=== PATIENT | male | born 1980 | race Two or more races ===

== ENCOUNTER 2016-08-15 17:45 | Inpatient (IN) | payer MEDICARE, MEDICAID ==
[~2016-08-15] VITALS: Ht 170.2 cm; Wt 49.9 kg
[~2016-08-15 17:45] MED LIST: CALC-317 PO; LEVE100012 PO; ZONI100C35 PO
[2016-08-15 18:38] LABS: Basophils # (auto) 0 uL; Basophils % (auto) 0.1 % (0.0-2.0); Eosinophils # (auto) 0.2 uL; Hematocrit 51.6 % (41.0-53.0); Hemoglobin 16.6 g/dL (13.5-17.5); Lymphocytes # (auto) 1.9 uL; Lymphocytes % (auto) 10.1 % (10.0-50.0); Mean Corpuscular Hemoglobin 29.4 pg (28.0-32.0); Mean Corpuscular Hgb Conc. 32.2 g/dL (32.0-36.0); Mean Corpuscular Volume 91.3 fL (80.0-100.0); Mean Platelet Volume 8.7 fL (7.4-10.4); Monocytes # (auto) 0.3 uL; Monocytes % (auto) 1.7 % (0.0-12.0); Neutrophils % (auto) 87.1 % (37.0-80.0); Platelet Count (auto) 238 10^3/uL (140-450); Red Cell Distribution Width 14.8 % (11.6-16.0); SUSPECT VIEW TRANSMISSION; White Blood Cell 18.4 10^3/uL (4.4-10.8)
[2016-08-15] MEDS ORDERED: SODIUM CHLORIDE 0.9% 1,000 ML IV ONE (18:45)
[2016-08-15 18:59] LABS: Albumin 4.3 g/dL (3.4-5.0); BUN/Creatinine Ratio 14.1; Calcium 7.8 mg/dL (8.5-10.1); Potassium 4.1 mmol/L (3.5-5.1)
[2016-08-15 19:02] LABS: Bilirubin, Total 0.5 mg/dL (0.2-1.0); Total Protein 7.8 g/dL (6.4-8.2)
[2016-08-15] MEDS ORDERED: cefTRIAXone 1GM/50ML D5W 50 ML IV ONE (20:30)
[2016-08-16] MEDS ORDERED: HYDROcodone-ACET 5/325MG TAB PO PRN
[2016-08-16] MEDS ORDERED: ACETAMINOPHEN 325 MG TAB PO PRN
[2016-08-16] MEDS ORDERED: NITROGLYCERIN 0.4 MG SL TAB SL PRN
[2016-08-16] MEDS ORDERED: AZITHROMYCIN 500MG/D5W 250ML 250 ML IV ONE
[2016-08-16] MEDS ORDERED: ONDANSETRON HCL 4 MG/2 ML VIAL IV PRN
[2016-08-16] MEDS ORDERED: LORazepam 2MG/ML-1ML VIAL IV PRN
[2016-08-16] MEDS ORDERED: MORPHINE SULF INJ 2 MG/ML SYRINGE 1ML IV PRN
[2016-08-16] MEDS ORDERED: LEVETIRACETAM 500 MG TAB PO ONE
[2016-08-16] MEDS: ZONISAMIDE 100 MG PO SCH ×2 (01:35→22:00)
[2016-08-16 01:45] VITALS: BP 118/56
[2016-08-16 05:00] VITALS: BP 98/57
[2016-08-16 06:06] LABS: Basophils # (auto) 0.1 uL; Basophils % (auto) 0.6 % (0.0-2.0); Eosinophils # (auto) 0 uL; Eosinophils % (auto) 0.1 % (0.0-7.0); Hematocrit 45.3 % (41.0-53.0); Hemoglobin 14.9 g/dL (13.5-17.5); Lymphocytes # (auto) 0.9 uL; Lymphocytes % (auto) 7.1 % (10.0-50.0); Mean Corpuscular Hemoglobin 29.7 pg (28.0-32.0); Mean Corpuscular Hgb Conc. 32.8 g/dL (32.0-36.0); Mean Corpuscular Volume 90.5 fL (80.0-100.0); Mean Platelet Volume 8.8 fL (7.4-10.4); Monocytes # (auto) 0.9 uL; Monocytes % (auto) 7.4 % (0.0-12.0); Neutrophils # (auto) 10.3 uL; Neutrophils % (auto) 84.8 % (37.0-80.0); Platelet Count (auto) 162 10^3/uL (140-450); Red Cell Distribution Width 13.1 % (11.6-16.0); White Blood Cell 12.2 10^3/uL (4.4-10.8)
[2016-08-16 06:31] LABS: Albumin 3.4 g/dL (3.4-5.0); BUN/Creatinine Ratio 15.5; Bilirubin, Total 0.4 mg/dL (0.2-1.0); Calcium 7.9 mg/dL (8.5-10.1); Potassium 3.8 mmol/L (3.5-5.1); Total Protein 6.5 g/dL (6.4-8.2)
[2016-08-16 09:00] VITALS: BP 99/52
[2016-08-16] MEDS: cefTRIAXone 1GM/50ML D5W 50 ML IV SCH (09:24)
[2016-08-16] MEDS: AZITHROMYCIN 500MG/D5W 250ML 250 ML IV SCH (10:54)
[2016-08-16] MEDS: LEVETIRACETAM 500 MG TAB PO SCH ×2 (10:54→21:35)
[2016-08-16] MEDS: FAMOTIDINE 20 MG TAB PO SCH ×2 (10:54→21:35)
[2016-08-16] MEDS ORDERED: DEXTROSE (50%) 50ML SYRG IV PRN (12:15)
[2016-08-16 13:00] VITALS: BP 116/70
[2016-08-16 16:56] VITALS: BP 108/69
[2016-08-16] MEDS: ACCU-CHEK COMFORT CURVE STRIP VI SCH (17:00)
[2016-08-16] MEDS: InsuLIN REG 1unit/0.01ml Soln (100units/ml) SC SCH ×2 (17:00→22:00)
[2016-08-16] MEDS: PRIMIDONE 50 MG TAB PO SCH ×2 (21:35)
[2016-08-16 22:00] VITALS: BP 116/70
[2016-08-17] MEDS: ACCU-CHEK COMFORT CURVE STRIP VI SCH ×2 (02:59→05:50)
[2016-08-17 05:30] VITALS: BP 102/60
[2016-08-17] MEDS: InsuLIN REG 1unit/0.01ml Soln (100units/ml) SC SCH (05:50)
[2016-08-17 06:59] LABS: Basophils # (auto) 0 uL; Basophils % (auto) 0.4 % (0.0-2.0); Eosinophils # (auto) 0.1 uL; Eosinophils % (auto) 1.4 % (0.0-7.0); Hematocrit 46.8 % (41.0-53.0); Hemoglobin 15.4 g/dL (13.5-17.5); Lymphocytes # (auto) 1.3 uL; Lymphocytes % (auto) 18.4 % (10.0-50.0); Mean Corpuscular Hemoglobin 29.6 pg (28.0-32.0); Mean Corpuscular Volume 89.7 fL (80.0-100.0); Mean Platelet Volume 9.6 fL (7.4-10.4); Monocytes % (auto) 14.5 % (0.0-12.0); Neutrophils # (auto) 4.7 uL; Neutrophils % (auto) 65.3 % (37.0-80.0); Platelet Count (auto) 173 10^3/uL (140-450); Red Cell Distribution Width 14.3 % (11.6-16.0); White Blood Cell 7.2 10^3/uL (4.4-10.8)
[2016-08-17 07:06] LABS: Potassium 3.7 mmol/L (3.5-5.1)
[2016-08-17 07:19] LABS: Albumin 3.5 g/dL (3.4-5.0); BUN/Creatinine Ratio 15.7; Bilirubin, Total 0.4 mg/dL (0.2-1.0); Calcium 8.5 mg/dL (8.5-10.1); Total Protein 6.8 g/dL (6.4-8.2)
[2016-08-17 09:00] VITALS: BP 107/59
[2016-08-17] MEDS: cefTRIAXone 1GM/50ML D5W 50 ML IV SCH (09:10)
[2016-08-17] MEDS: LEVETIRACETAM 500 MG TAB PO SCH ×2 (10:01→21:57)
[2016-08-17] MEDS: AZITHROMYCIN 500MG/D5W 250ML 250 ML IV SCH (10:01)
[2016-08-17] MEDS: FAMOTIDINE 20 MG TAB PO SCH ×2 (10:01→21:57)
[2016-08-17 13:00] VITALS: BP 108/64
[2016-08-17 15:00] VITALS: BP 107/67
[2016-08-17] MEDS: ZONISAMIDE 100 MG PO SCH (21:56)
[2016-08-17] MEDS: PRIMIDONE 50 MG TAB PO SCH (21:57)
[2016-08-17 22:00] VITALS: BP 103/61
[2016-08-18 05:30] VITALS: BP 101/68
[2016-08-18 06:21] LABS: Basophils # (auto) 0.1 uL; Basophils % (auto) 0.9 % (0.0-2.0); Eosinophils # (auto) 0.3 uL; Eosinophils % (auto) 4.7 % (0.0-7.0); Hemoglobin 15.7 g/dL (13.5-17.5); Lymphocytes # (auto) 2.2 uL; Lymphocytes % (auto) 40.6 % (10.0-50.0); Mean Corpuscular Hemoglobin 29.7 pg (28.0-32.0); Mean Corpuscular Hgb Conc. 32.7 g/dL (32.0-36.0); Mean Corpuscular Volume 90.6 fL (80.0-100.0); Mean Platelet Volume 9.1 fL (7.4-10.4); Monocytes # (auto) 0.7 uL; Monocytes % (auto) 13.5 % (0.0-12.0); Neutrophils # (auto) 2.2 uL; Neutrophils % (auto) 40.3 % (37.0-80.0); Platelet Count (auto) 180 10^3/uL (140-450); Red Cell Distribution Width 14.2 % (11.6-16.0); White Blood Cell 5.5 10^3/uL (4.4-10.8)
[2016-08-18 06:36] LABS: Potassium 3.8 mmol/L (3.5-5.1)
[2016-08-18 06:47] LABS: Albumin 3.3 g/dL (3.4-5.0); BUN/Creatinine Ratio 19.3; Calcium 7.9 mg/dL (8.5-10.1); Total Protein 6.8 g/dL (6.4-8.2)
[2016-08-18 06:49] LABS: Bilirubin, Total 0.4 mg/dL (0.2-1.0)
[2016-08-18 08:42] VITALS: BP 106/68
[2016-08-18] MEDS: cefTRIAXone 1GM/50ML D5W 50 ML IV SCH (09:01)
[2016-08-18] MEDS: LEVETIRACETAM 500 MG TAB PO SCH (09:27)
[2016-08-18] MEDS: FAMOTIDINE 20 MG TAB PO SCH (09:27)
[2016-08-18] MEDS ORDERED: AZITHROMYCIN 250 MG TAB PO SCH (10:00)
[2016-08-18 11:46] VITALS: BP 107/69
== END 2016-08-18 11:50 | disposition home or self-care (01) | DRG 871 ==
LOC: EDUNIT# 17:45 → ER 17:45 → TELE 17:46 → TELE-WESTW 08-16 01:27 → WEST WING 08-18 06:57
PROVIDERS: ADMIT Internal Medicine; ATTEND Family Medicine
DX: A41.9 Sepsis, unspecified organism (principal); J69.0 Pneumonitis due to inhalation of food and vomit; J98.11 Atelectasis; G40.901 Epilepsy, unspecified, not intractable, with status epilepticus; G80.9 Cerebral palsy, unspecified; F79 Unspecified intellectual disabilities; Z90.89 Acquired absence of other organs; Z80.8 Family history of malignant neoplasm of other organs or systems; Z79.899 Other long term (current) drug therapy; C44.90 Unspecified malignant neoplasm of skin, unspecified
CPT/HCPCS: 36415; 70450; 71010; 80053; 82542; 82962; 83036; 83605; 85025; 87040; 96361; 96365; 99291; J0696

== ENCOUNTER 2018-05-30 20:30 | Emergency (ER) | payer MEDICARE, MEDICAID ==
[~2018-05-30] VITALS: Ht 175.3 cm; Wt 52.6 kg
[2018-05-31 02:42] LABS: Hematocrit 49.9 % (41.0-53.0); Hemoglobin 17.1 g/dL (13.5-17.5); Mean Corpuscular Hemoglobin 31.6 pg (28.0-32.0); Mean Corpuscular Hgb Conc. 34.2 g/dL (32.0-36.0); Mean Corpuscular Volume 92.5 fL (80.0-100.0); Platelet Count (auto) 116 10^3/uL (140-450); Red Cell Distribution Width 13.2 % (11.8-14.3); White Blood Cell 3.7 10^3/uL (4.4-10.8)
[2018-05-31 02:45] LABS: Band Neutrophils % (manual) 0; Basophils % (manual) 0 (0.0-2.0); Blast Cells 0; Eosinophils % (manual) 0 (0-7); Metamyelocytes % 0; Myelocytes % 0; Promyelocytes % 0; Reactive Lymphocytes 0
[2018-05-31 02:54] LABS: Albumin 4.2 g/dL (3.4-5.0); BUN/Creatinine Ratio 11.2; Calcium 8.5 mg/dL (8.5-10.1)
[2018-05-31 02:56] LABS: Bilirubin, Total 0.5 mg/dL (0.2-1.0); Total Protein 7.7 g/dL (6.4-8.2)
[2018-05-31] MEDS ORDERED: cefTRIAXone SOD 1,000 MG VL ONE (03:18)
[2018-05-31 03:30] LABS: Lymphocytes % (manual) 14 (10.0-50.0); Monocytes % (manual) 19 (0-12)
[2018-05-31] MEDS: cefTRIAXone W LIDOCAINE 1 GM IM IM ONE ×2 (03:40→03:46)
[2018-05-31] MEDS ORDERED: ACETAMINOPHEN 650 mg PER 20 mL UD PO ONE (03:45)
[2018-05-31 04:22] VITALS: BP 102/69
== END 2018-05-31 04:12 | disposition home or self-care (01) ==
LOC: ER 20:30
DX: J20.9 Acute bronchitis, unspecified (principal)
CPT/HCPCS: 36415; 71045; 80053; 85007; 85027; 99285; J0696

== ENCOUNTER 2022-08-31 00:31 | Emergency (ER) | payer MEDICARE, MEDICAID ==
[~2022-08-31] VITALS: Ht 167.6 cm; Wt 63.5 kg
[~2022-08-31 00:31] MED LIST changes: +ZONI100C18 PO; -ZONI100C35 PO
[2022-08-31] MEDS ORDERED: levETIRAcetam 500 MG/5ML INJ IV ONE (02:38)
[2022-08-31 03:15] VITALS: BP 120/62
[2022-08-31] MEDS ORDERED: ACETAMINOPHEN 325 MG TAB PO ONE (03:45)
== END 2022-08-31 04:42 | disposition home or self-care (01) ==
LOC: EDBD 00:31 → ER 00:31
DX: R56.9 Unspecified convulsions (principal); Z79.899 Other long term (current) drug therapy; Z90.89 Acquired absence of other organs
CPT/HCPCS: 71045; 96365; 99283; J1953; J7060

== ENCOUNTER 2023-11-29 23:32 | Emergency (ER) | payer MEDICARE, MEDICAID ==
[~2023-11-29] VITALS: Ht 175.3 cm; Wt 68.0 kg
[2023-11-30 01:20] LABS: Basophils # (auto) 0 10 ^3/uL (0-0.2); Basophils % (auto) 0.6 % (0.0-2.0); Eosinophils # (auto) 0.1 10 ^3/uL (0-0.8); Eosinophils % (auto) 1.5 % (0.0-7.0); Hematocrit 44.8 % (41.0-53.0); Hemoglobin 15.3 g/dL (13.5-17.5); Lymphocytes # (auto) 1.1 10 ^3/uL (0.4-5.4); Lymphocytes % (auto) 16.7 % (10.0-50.0); Mean Corpuscular Hemoglobin 32.3 pg (28.0-32.0); Mean Corpuscular Hgb Conc. 34.2 g/dL (32.0-36.0); Mean Corpuscular Volume 94.4 fL (80.0-100.0); Monocytes # (auto) 0.6 10 ^3/uL (0-1.3); Monocytes % (auto) 8.9 % (0.0-12.0); Neutrophils # (auto) 4.6 10 ^3/uL (1.6-8.6); Neutrophils % (auto) 72.3 % (37.0-80.0); Nucleated Red Blood Cells % 0.3 %; Red Blood Cells 4.75 10^6/uL (4.5-5.90); Red Cell Distribution Width 13.2 % (11.8-14.3); White Blood Cell 6.4 10^3/uL (4.4-10.8)
[2023-11-30 01:23] LABS: Chloride 106 mmol/L (98-107); Potassium 3.8 mmol/L (3.5-5.1); Sodium 139 mmol/L (136-145)
[2023-11-30 01:24] LABS: Anion Gap 3 (5-15); Calcium 9.2 mg/dL (8.7-10.4); Carbon Dioxide 30 mmol/L (20-30)
[2023-11-30 01:29] LABS: BUN/Creatinine Ratio 18.2 (10.0-20.0); Blood Urea Nitrogen 14 mg/dL (9-23); Glucose 105 mg/dL (74-106)
[2023-11-30 01:40] VITALS: PULSE 66; RESP 15; TEMP 98.6; O2SAT 96
[2023-11-30] MEDS: LORazepam 2MG/ML-1ML VIAL IV ONE (01:43)
[2023-11-30] MEDS ORDERED: AUG875T PO (02:40)
[2023-11-30] MEDS: cefTRIAXone 1GM/50ML D5W 50 ML IV ONE (02:58)
[2023-11-30 04:04] VITALS: BP 108/61; PULSE 65; RESP 16; O2SAT 96
== END 2023-11-30 04:15 | disposition home or self-care (01) ==
LOC: ER 23:32 → EDBD 23:32 → ER 11-30 04:15
DX: G40.909 Epilepsy, unspecified, not intractable, without status epilepticus (principal); H66.91 Otitis media, unspecified, right ear; Z90.89 Acquired absence of other organs
CPT/HCPCS: 36415; 80048; 84484; 85025; 93005; 96365; 96375; 99284; J0696; J2060

== ENCOUNTER 2023-12-02 21:56 | Emergency (ER) | payer MEDICARE, MEDICAID ==
[~2023-12-02] VITALS: Ht 182.9 cm; Wt 45.4 kg
[~2023-12-02 21:56] MED LIST changes: +AUG875T PO
[2023-12-02] MEDS: levETIRAcetam 1000 mg/100ml 100 ML IV ONE (22:59)
[2023-12-02 23:00] VITALS: TEMP 98.3
[2023-12-02 23:32] VITALS: PULSE 70; RESP 15; O2SAT 97
[2023-12-03] VITALS: BP 97/58; PULSE 69; RESP 12; O2SAT 98
[2023-12-04] MEDS ORDERED: LEVE250T18 PO (21:03)
[2023-12-04] MEDS ORDERED: PRIM50TA5 PO (21:49)
== END 2023-12-03 00:45 | disposition home or self-care (01) ==
LOC: ER 21:56 → EDBD 21:56 → ER 12-03 00:45
DX: R56.9 Unspecified convulsions (principal); F84.0 Autistic disorder
CPT/HCPCS: 93005; 96365; 99285; J1953

== ENCOUNTER 2023-12-04 10:52 | Inpatient (IN) | payer MEDICARE, MEDICAID ==
[~2023-12-04] VITALS: Ht 167.6 cm; Wt 49.4 kg
[2023-12-04] MEDS: SODIUM CHLORIDE 0.9% 1,000 ML IV ONE (11:43)
[2023-12-04 11:57] LABS: Alanine Aminotransferase 19 U/L (7-40); Albumin 4.4 g/dL (3.2-4.8); Alkaline Phosphatase 59 U/L (46-116); Anion Gap 4 (5-15); Aspartate Aminotransferase 15 U/L (13-40); BUN/Creatinine Ratio 18.3 (10.0-20.0); Basophils # (auto) 0 10 ^3/uL (0-0.2); Basophils % (auto) 0.2 % (0.0-2.0); Blood Urea Nitrogen 13 mg/dL (9-23); Calcium 9.8 mg/dL (8.7-10.4); Carbon Dioxide 27 mmol/L (20-30); Chloride 107 mmol/L (98-107); Eosinophils # (auto) 0 10 ^3/uL (0-0.8); Glucose 117 mg/dL (74-106); Hematocrit 46.8 % (41.0-53.0); Hemoglobin 15.8 g/dL (13.5-17.5); Lymphocytes # (auto) 1.1 10 ^3/uL (0.4-5.4); Lymphocytes % (auto) 10.3 % (10.0-50.0); Mean Corpuscular Hemoglobin 31.8 pg (28.0-32.0); Mean Corpuscular Hgb Conc. 33.8 g/dL (32.0-36.0); Monocytes % (auto) 9.4 % (0.0-12.0); Neutrophils # (auto) 8.8 10 ^3/uL (1.6-8.6); Neutrophils % (auto) 80.1 % (37.0-80.0); Nucleated Red Blood Cells % 0.2 %; Red Blood Cells 4.98 10^6/uL (4.5-5.90); Red Cell Distribution Width 13.4 % (11.8-14.3); Sodium 138 mmol/L (136-145)
[2023-12-04 11:58] LABS: Bilirubin, Total 0.9 mg/dL (0.2-1.0); Total Protein 6.7 g/dL (5.7-8.2)
[2023-12-04 12:27] VITALS: RESP 16; O2SAT 96
[2023-12-04] MEDS: levETIRAcetam 1000 mg/100ml 100 ML IV ONE (12:36)
[2023-12-04 12:47] LABS: Platelet Estimate Adequate
[2023-12-04] MEDS: ACETAMINOPHEN 650 mg PER 20.3 mL UD PO ONE (15:00)
[2023-12-04] MEDS ORDERED: ONDANSETRON HCL 4 MG/2 ML VIAL IV PRN (15:15)
[2023-12-04] MEDS ORDERED: HYDROcodone-ACET 5/325MG TAB PO PRN (15:15)
[2023-12-04] MEDS ORDERED: MORPHINE SULFATE INJ 2 MG/ml SYRG IV PRN ×2 (15:15)
[2023-12-04] MEDS ORDERED: NITROGLYCERIN 0.4 MG SL TAB SL PRN (15:15)
[2023-12-04] MEDS ORDERED: LORazepam 2MG/ML-1ML VIAL IV PRN (15:30)
[2023-12-04] MEDS: cefTRIAXone 1GM/50ML D5W 50 ML IV SCH (15:41)
[2023-12-04] MEDS: SODIUM CHLORIDE 0.9% 1,000 ML IV SCH (15:47)
[2023-12-04 20:36] VITALS: RESP 14; O2SAT 94
[2023-12-04] MEDS ORDERED: LEVE250T18 PO (21:03)
[2023-12-04] MEDS: ZONISAMIDE 200 MG PO SCH (21:46)
[2023-12-04] MEDS: levETIRAcetam 500 MG TAB PO SCH (21:46)
[2023-12-04] MEDS: CALCIUM CARBONATE CHOLECALCIFE PO SCH (21:47)
[2023-12-04] MEDS ORDERED: PRIM50TA5 PO (21:49)
[2023-12-04] MEDS ORDERED: PATIENTS OWN MEDICATION (Levetiracetam (Keppra) 1 TAB) PO SCH (22:00)
[2023-12-04] MEDS ORDERED: levETIRAcetam 500 MG TAB PO SCH (22:00)
[2023-12-05 04:30] LABS: Basophils # (auto) 0 10 ^3/uL (0-0.2); Basophils % (auto) 0.3 % (0.0-2.0); Eosinophils # (auto) 0 10 ^3/uL (0-0.8); Eosinophils % (auto) 0.2 % (0.0-7.0); Hematocrit 46.7 % (41.0-53.0); Hemoglobin 15.8 g/dL (13.5-17.5); Lymphocytes # (auto) 1.5 10 ^3/uL (0.4-5.4); Lymphocytes % (auto) 11.6 % (10.0-50.0); Mean Corpuscular Hemoglobin 32.1 pg (28.0-32.0); Mean Corpuscular Hgb Conc. 33.8 g/dL (32.0-36.0); Mean Corpuscular Volume 94.8 fL (80.0-100.0); Monocytes # (auto) 1.3 10 ^3/uL (0-1.3); Monocytes % (auto) 10.3 % (0.0-12.0); Neutrophils # (auto) 9.8 10 ^3/uL (1.6-8.6); Neutrophils % (auto) 77.6 % (37.0-80.0); Red Blood Cells 4.93 10^6/uL (4.5-5.90); Red Cell Distribution Width 12.7 % (11.8-14.3); White Blood Cell 12.7 10^3/uL (4.4-10.8)
[2023-12-05 04:51] LABS: Calcium 9.5 mg/dL (8.7-10.4); Chloride 109 mmol/L (98-107); Potassium 3.8 mmol/L (3.5-5.1); Sodium 138 mmol/L (136-145)
[2023-12-05 04:52] LABS: Anion Gap 7 (5-15); Carbon Dioxide 22 mmol/L (20-30)
[2023-12-05 04:58] LABS: Blood Urea Nitrogen 9 mg/dL (9-23); Glucose 112 mg/dL (74-106)
[2023-12-05 13:01] LABS: Basophils # (auto) 0 10 ^3/uL (0-0.2); Basophils % (auto) 0.3 % (0.0-2.0); Eosinophils # (auto) 0 10 ^3/uL (0-0.8); Eosinophils % (auto) 0.1 % (0.0-7.0); Hematocrit 45.2 % (41.0-53.0); Hemoglobin 15.8 g/dL (13.5-17.5); Lymphocytes # (auto) 1.1 10 ^3/uL (0.4-5.4); Lymphocytes % (auto) 11.1 % (10.0-50.0); Mean Corpuscular Hemoglobin 32.5 pg (28.0-32.0); Mean Corpuscular Hgb Conc. 34.8 g/dL (32.0-36.0); Mean Corpuscular Volume 93.4 fL (80.0-100.0); Monocytes # (auto) 1.2 10 ^3/uL (0-1.3); Monocytes % (auto) 11.6 % (0.0-12.0); Neutrophils % (auto) 76.9 % (37.0-80.0); Nucleated Red Blood Cells % 0.1 %; Red Blood Cells 4.84 10^6/uL (4.5-5.90); Red Cell Distribution Width 12.8 % (11.8-14.3); White Blood Cell 10.4 10^3/uL (4.4-10.8)
[2023-12-05 19:30] VITALS: PULSE 91; RESP 12; O2SAT 97
[2023-12-06 02:55] LABS: Urine Bacteria None Seen /hpf (None Seen)
[2023-12-06 03:06] LABS: Urine Amorphous Crystal FEW /hpf (None Seen); Urine Blood Negative /uL (Negative); Urine Clarity Turbid (Clear); Urine Color Light-Yellow (Yellow); Urine Protein, UAD Negative (Negative); Urine Specific Gravity 1.018 (1.001-1.035); Urine Urobilinogen 3 mg/dL (Negative); Urine WBC <1 /hpf (0 - 3)
[2023-12-06 03:44] LABS: Amphetamine Screen, Urine Neg (NEGATIVE); Barbiturate Scree,Urine Pos (NEGATIVE); Benzodiazephine Screen, Urine Neg (NEGATIVE); Cannabinoid Screen, Urine Neg (NEGATIVE); Cocaine Screen, Urine Neg (NEGATIVE); Opiate Scree,Urine Neg (NEGATIVE); Phencyclidine Screen, Urine Neg (NEGATIVE)
[2023-12-06 07:30] VITALS: PULSE 74; RESP 15; O2SAT 96
[2023-12-06] MEDS: ZONISAMIDE 300 MG PO SCH (08:38)
[2023-12-06] MEDS: PHENobarbital SODIUM 65 MG/ML VL IV SCH (10:00)
[2023-12-06] MEDS: SODIUM CHLORIDE 0.9% 1,000 ML IV SCH (16:30)
[2023-12-06] MEDS ORDERED: VANCOMYCIN PER PHARMACY 0 MG IV SCH (16:30)
[2023-12-06] MEDS: VANCOMYCIN 1GM/200ML 200 ML IV ONE (18:17)
[2023-12-06 18:18] LABS: Basophils # (auto) 0 10 ^3/uL (0-0.2); Basophils % (auto) 0.2 % (0.0-2.0); Eosinophils # (auto) 0.1 10 ^3/uL (0-0.8); Eosinophils % (auto) 0.6 % (0.0-7.0); Hematocrit 45.6 % (41.0-53.0); Hemoglobin 16.1 g/dL (13.5-17.5); Lymphocytes # (auto) 1.1 10 ^3/uL (0.4-5.4); Lymphocytes % (auto) 11.8 % (10.0-50.0); Mean Corpuscular Hemoglobin 32.6 pg (28.0-32.0); Mean Corpuscular Hgb Conc. 35.3 g/dL (32.0-36.0); Mean Corpuscular Volume 92.5 fL (80.0-100.0); Monocytes % (auto) 10.3 % (0.0-12.0); Neutrophils # (auto) 7.3 10 ^3/uL (1.6-8.6); Neutrophils % (auto) 77.1 % (37.0-80.0); Nucleated Red Blood Cells % 0.2 %; Red Blood Cells 4.93 10^6/uL (4.5-5.90); Red Cell Distribution Width 12.8 % (11.8-14.3); White Blood Cell 9.5 10^3/uL (4.4-10.8)
[2023-12-06 18:29] LABS: Chloride 106 mmol/L (98-107); Potassium 4.1 mmol/L (3.5-5.1); Sodium 136 mmol/L (136-145)
[2023-12-06 18:31] LABS: Calcium 9.3 mg/dL (8.5-10.1)
[2023-12-06 18:35] LABS: Glucose 106 mg/dL (74-106)
[2023-12-06 18:36] LABS: BUN/Creatinine Ratio 15.5 (10.0-20.0); Blood Urea Nitrogen 9 mg/dL (9-23)
[2023-12-06 19:06] LABS: Anion Gap 9 (5-15); Carbon Dioxide 21 mmol/L (20-30)
[2023-12-06 20:00] VITALS: PULSE 88; RESP 18; O2SAT 96
[2023-12-06] MEDS: ACETAMINOPHEN 500 MG TAB PO PRN (21:18)
[2023-12-07] MEDS: VANCOMYCIN 750mg/150ml 150 ML IV SCH (03:40)
[2023-12-07 06:34] LABS: Anion Gap 9 (5-15); Carbon Dioxide 22 mmol/L (20-30); Chloride 106 mmol/L (98-107); Potassium 3.7 mmol/L (3.5-5.1); Sodium 137 mmol/L (136-145)
[2023-12-07 06:36] LABS: Calcium 8.7 mg/dL (8.5-10.1)
[2023-12-07 06:41] LABS: BUN/Creatinine Ratio 12.5 (10.0-20.0); Blood Urea Nitrogen 7 mg/dL (9-23); Glucose 135 mg/dL (74-106)
[2023-12-07 07:00] LABS: Basophils # (auto) 0 10 ^3/uL (0-0.2); Basophils % (auto) 0.2 % (0.0-2.0); Eosinophils # (auto) 0.1 10 ^3/uL (0-0.8); Eosinophils % (auto) 0.6 % (0.0-7.0); Hemoglobin 15.8 g/dL (13.5-17.5); Lymphocytes # (auto) 0.8 10 ^3/uL (0.4-5.4); Lymphocytes % (auto) 5.5 % (10.0-50.0); Mean Corpuscular Hemoglobin 32.9 pg (28.0-32.0); Mean Corpuscular Volume 93.9 fL (80.0-100.0); Monocytes # (auto) 1.1 10 ^3/uL (0-1.3); Monocytes % (auto) 7.7 % (0.0-12.0); Neutrophils # (auto) 12.4 10 ^3/uL (1.6-8.6); Nucleated Red Blood Cells % 0.1 %; Red Blood Cells 4.79 10^6/uL (4.5-5.90); Red Cell Distribution Width 12.7 % (11.8-14.3); White Blood Cell 14.4 10^3/uL (4.4-10.8)
[2023-12-07 09:00] VITALS: BP 119/77; PULSE 77; RESP 16; TEMP 99.6; O2SAT 92
[2023-12-07] MEDS ORDERED: LEVE250T78 PO (10:24)
[2023-12-07 12:35] VITALS: BP 111/81; PULSE 85; RESP 18; TEMP 99.8; O2SAT 97
[2023-12-07 16:34] VITALS: BP 122/72; PULSE 88; RESP 18; TEMP 99.9; O2SAT 98
[2023-12-07 20:00] VITALS: PULSE 93; RESP 18; O2SAT 95
[2023-12-07 21:00] VITALS: BP_SYST 114; BP_SYST 129; BP_DIAS 70; BP_DIAS 76; PULSE 88; PULSE 91; RESP 20; TEMP 101; TEMP 99.3; O2SAT 98
[2023-12-07] MEDS: CEFEPIME 1GM/ 50ML 50 ML IV SCH (21:15)
[2023-12-07] MEDS: METOCLOPRAMIDE HCL 5MG/ml INJ 2ml VIAL IV SCH (21:15)
[2023-12-07] MEDS: DOCUSATE SOD 100 MG CAP PO SCH (21:15)
[2023-12-08] VITALS (8 sets, daily range): BP systolic 115–142; BP diastolic 69–83; PULSE 85–93; RESP 17–20; TEMP 98.1–100.6; O2SAT 95–97
[2023-12-08] MEDS: VANCOMYCIN 1GM/200ML 200 ML IV SCH (04:14)
[2023-12-08 05:51] LABS: Anion Gap 8 (5-15); Carbon Dioxide 23 mmol/L (20-30); Chloride 108 mmol/L (98-107); Potassium 3.6 mmol/L (3.5-5.1); Sodium 139 mmol/L (136-145)
[2023-12-08 05:52] LABS: Calcium 8.5 mg/dL (8.5-10.1)
[2023-12-08 05:53] LABS: Basophils # (auto) 0 10 ^3/uL (0-0.2); Basophils % (auto) 0.4 % (0.0-2.0); Eosinophils # (auto) 0.3 10 ^3/uL (0-0.8); Eosinophils % (auto) 2.9 % (0.0-7.0); Hematocrit 43.8 % (41.0-53.0); Hemoglobin 15.4 g/dL (13.5-17.5); Lymphocytes # (auto) 1.3 10 ^3/uL (0.4-5.4); Lymphocytes % (auto) 12.7 % (10.0-50.0); Mean Corpuscular Hgb Conc. 35.2 g/dL (32.0-36.0); Mean Corpuscular Volume 93.8 fL (80.0-100.0); Monocytes # (auto) 1.1 10 ^3/uL (0-1.3); Monocytes % (auto) 10.4 % (0.0-12.0); Neutrophils # (auto) 7.5 10 ^3/uL (1.6-8.6); Neutrophils % (auto) 73.6 % (37.0-80.0); Nucleated Red Blood Cells % 0.1 %; Red Blood Cells 4.67 10^6/uL (4.5-5.90); Red Cell Distribution Width 12.6 % (11.8-14.3); White Blood Cell 10.2 10^3/uL (4.4-10.8)
[2023-12-08 05:57] LABS: BUN/Creatinine Ratio 23.5 (10.0-20.0); Blood Urea Nitrogen 12 mg/dL (9-23); Glucose 92 mg/dL (74-106)
[2023-12-08] MEDS: CALCIUM W/VIT D (600MG/400IU) TAB ONE (12:52)
[2023-12-08] MEDS: LACTULOSE 20Gm/30ML SOLN PO ONE (19:00)
[2023-12-09] VITALS (8 sets, daily range): BP systolic 107–154; BP diastolic 64–87; PULSE 76–91; RESP 14–20; TEMP 36.4; O2SAT 95–96
[2023-12-09 06:26] LABS: Basophils # (auto) 0.1 10 ^3/uL (0-0.2); Basophils % (auto) 0.7 % (0.0-2.0); Eosinophils # (auto) 0.3 10 ^3/uL (0-0.8); Eosinophils % (auto) 2.8 % (0.0-7.0); Hematocrit 46.4 % (41.0-53.0); Lymphocytes # (auto) 1.1 10 ^3/uL (0.4-5.4); Mean Corpuscular Hemoglobin 32.7 pg (28.0-32.0); Mean Corpuscular Hgb Conc. 34.5 g/dL (32.0-36.0); Mean Corpuscular Volume 94.8 fL (80.0-100.0); Monocytes % (auto) 9.7 % (0.0-12.0); Neutrophils # (auto) 7.9 10 ^3/uL (1.6-8.6); Neutrophils % (auto) 75.8 % (37.0-80.0); Nucleated Red Blood Cells % 0.1 %; Red Blood Cells 4.89 10^6/uL (4.5-5.90); Red Cell Distribution Width 12.9 % (11.8-14.3); White Blood Cell 10.4 10^3/uL (4.4-10.8)
[2023-12-09 06:49] LABS: Anion Gap 10 (5-15); Carbon Dioxide 21 mmol/L (20-30); Chloride 108 mmol/L (98-107); Potassium 3.9 mmol/L (3.5-5.1); Sodium 139 mmol/L (136-145)
[2023-12-09 06:54] LABS: Glucose 106 mg/dL (74-106)
[2023-12-09 06:55] LABS: BUN/Creatinine Ratio 18.9 (10.0-20.0); Blood Urea Nitrogen 10 mg/dL (9-23)
[2023-12-09] MEDS: SODIUM CHLORIDE 0.9% 1,000 ML IV SCH (09:34)
[2023-12-09] MEDS: Ensure Enlive Strawberry 8oz Bottle PO SCH (18:16)
[2023-12-09] MEDS: PRIMIDONE 50 MG TAB PO SCH (22:50)
[2023-12-09] MEDS: CALCIUM W/VIT D (600MG/400IU) TAB ONE (22:53)
[2023-12-10 01:00] VITALS: BP 116/70; PULSE 83; RESP 14; TEMP 99.1; O2SAT 98
[2023-12-10 05:00] VITALS: BP 114/79; PULSE 79; RESP 16; TEMP 99; O2SAT 97
[2023-12-10] MEDS: CALCIUM W/VIT D (600MG/400IU) TAB ONE (05:22)
[2023-12-10 09:39] VITALS: BP 117/77; PULSE 87; RESP 18; TEMP 98.7; O2SAT 96
[2023-12-10 13:00] VITALS: BP 123/77; PULSE 98; RESP 20; TEMP 98; O2SAT 96
[2023-12-10] MEDS: DOXYCYCLINE 100MG/250ML 250 ML IV SCH (13:58)
[2023-12-10 16:55] VITALS: BP_SYST 128; BP_SYST 133; BP_DIAS 71; BP_DIAS 80; PULSE 79; PULSE 90; RESP 18; RESP 20; TEMP 98.5; TEMP 99; O2SAT 96; O2SAT 98
[2023-12-10 21:37] VITALS: BP 123/82; PULSE 90; RESP 16; TEMP 98.6; O2SAT 98
[2023-12-11] VITALS (8 sets, daily range): BP systolic 103–120; BP diastolic 66–77; PULSE 72–92; RESP 16–18; TEMP 97.2–99.3; O2SAT 92–98
[2023-12-12] VITALS (8 sets, daily range): BP systolic 111–127; BP diastolic 56–71; PULSE 74–90; RESP 15–20; TEMP 98–99.2; O2SAT 91–100
[2023-12-12 06:46] LABS: Chloride 104 mmol/L (98-107); Sodium 137 mmol/L (136-145)
[2023-12-12 06:47] LABS: Anion Gap 4 (5-15); Carbon Dioxide 29 mmol/L (20-30)
[2023-12-12 06:48] LABS: Calcium 9.1 mg/dL (8.5-10.1)
[2023-12-12 06:52] LABS: Glucose 89 mg/dL (74-106)
[2023-12-12 06:53] LABS: Blood Urea Nitrogen 8 mg/dL (9-23)
[2023-12-12] MEDS ORDERED: LACTULOSE 20Gm/30ML SOLN PO PRN (11:15)
[2023-12-12] MEDS: DOXYCYCLINE 100 MG TAB/CAP PO SCH (22:55)
[2023-12-13 00:31] VITALS: BP 117/60; PULSE 79; RESP 19; TEMP 98.8; O2SAT 98
[2023-12-13 05:02] VITALS: BP 136/79; PULSE 82; RESP 18; TEMP 98.3; O2SAT 97
[2023-12-13 08:10] VITALS: RESP 15; O2SAT 97
[2023-12-13 13:00] VITALS: BP 121/76; PULSE 94; RESP 16; TEMP 97.8; O2SAT 94
[2023-12-13 16:21] VITALS: TEMP 36.6
[2023-12-14] MEDS ORDERED: DOXY-346 PO (11:52)
== END 2023-12-13 17:00 | disposition home health service (06) | DRG 871 ==
LOC: ER 10:52 → EDBD 10:52 → EDUNIT# 10:52 → TELE 15:15 → TELE-CENTR 12-07 09:00 → CENTRAL 12-07 23:31
PROVIDERS: ADMIT Nurse Practitioner Acute Care; ATTEND Nurse Practitioner Acute Care
DX: A41.9 Sepsis, unspecified organism (principal); G93.41 Metabolic encephalopathy; J69.0 Pneumonitis due to inhalation of food and vomit; J15.9 Unspecified bacterial pneumonia; J15.69 Pneumonia due to other Gram-negative bacteria; G40.201 Localization-related (focal) (partial) symptomatic epilepsy and epileptic syndromes with complex partial seizures, not intractable, with status epilepticus; R47.01 Aphasia; G80.9 Cerebral palsy, unspecified; G40.401 Other generalized epilepsy and epileptic syndromes, not intractable, with status epilepticus; F79 Unspecified intellectual disabilities; K59.00 Constipation, unspecified; Z87.820 Personal history of traumatic brain injury; Z79.899 Other long term (current) drug therapy; Z80.8 Family history of malignant neoplasm of other organs or systems
CPT/HCPCS: 36415; 70450; 71045; 74176; 80048; 80053; 80202; 80307; 81001; 82962; 84484; 85025; 87040; 93005; 95819; 96361; 96365; 96367; 97110; 97116; 97163; 97530; 99291; G0378; J3490